=== PATIENT | male | born 1975 | race Caucasian/White ===

== ENCOUNTER 2017-01-10 15:32 | Inpatient (IN) | payer OTHER ==
[~2017-01-10] VITALS: Ht 188 cm; Wt 96.8 kg
--- NOTE | 2017-01-10 16:10 | DIAGNOSTIC IMAGING REPORT ---
PROCEDURE: XR CHEST 2 VIEW INDICATION: COUGH AND BODY ACHES TECHNIQUE: PA and lateral views. COMPARISON: None. FINDINGS: Left lower lobe infiltrate. Heart and mediastinum are normal. Thorax is normal. IMPRESSION: 1. Left lower lobe infiltrate
--- NOTE | 2017-01-10 18:07 | ED ORDER SUMMARY ---
..... Patient: ROSIBEL CORTES OrderSheet [facility] VisitID: [id number] [address] [place] [address] 41y, M Registration Date/Time: 01/10/2017 ORDER SHEET Weight: 93.4 kg (stated) Allergies: Sulfa Antibiotics GENERAL ORDERS: Chest 2V Urgent (15:44 01/10/2017 Etienne Marshall) (Ack 15:45 IJurca ER Tech1) (16:21 DDean R.N.) Blood Culture (Yes) (azithromycin) Urgent (20:26 01/10/2017 Etienne Marshall) (Ack 20:31 Tatiana ER Top Screw) (21:31 DDean R.N.) CMP Urgent (20:26 01/10/2017 Etienne Marshall) (Ack 20:31 Tatiana ER Top Screw) (20:56 DDean R.N.) CBC w Diff Urgent (20:26 01/10/2017 Etienne Marshall) (Ack 20:31 Tatiana ER Top Screw) (20:56 DDean R.N.) Lactate, Serum Urgent (20:26 01/10/2017 Etienne Marshall) (Ack 20:31 Tatiana ER Top Screw) (21:31 DDean R.N.) - (IV bag #3 1000cc at 500cc/hr) (23:00 01/10/2017 DDean R.N. per protocol) (23:01 DDean R.N.) MEDICATION ORDERS: Motrin PO 600 mg (NOW) (15:45 01/10/2017 Etienne Marshall) (Ack 15:47 DDean R.N.) (15:57 DDean R.N.) Tylenol PO 650 mg (NOW) (15:45 01/10/2017 Etienne Marshall) (Ack 15:48 DDean R.N.) (15:58 DDean R.N.) Azithromycin PO 500 mg (NOW) (16:28 01/10/2017 Etienne Marshall) (Ack 16:29 DDean R.N.) (16:33 DDean R.N.) IV FLUIDS: IV NS : initial bolus 1000 mL (1000 mL/hr), then none - for X1 (NOW) (16:23 01/10/2017 Etienne Marshall) (Cancelled: Patient Jhgrvwc21:28 DDean R.N.) IV NS with Normal Saline 1 Liter: initial bolus none -, then 1000 mL/hr for X1 (NOW); Nicolas (16:58 01/10/2017 LSullivan R.N. verbal order read back to Etienne Marshall) (16:59 LSullivan R.N.) Morphine IV 4 mg (NOW) (17:08 01/10/2017 LSullivan R.N. verbal order read back to Etienne Marshall) (17:08 LSullivan R.N.) IV NS : initial bolus 1000 mL (1000 mL/hr), then none - for X1 (NOW) (20:58 01/10/2017 Etienne Marshall) (Ack 21:01 DDean R.N.) (22:59 DDean R.N.) Ceftriaxone IV 2 gm/50mL (NOW) (22:10 01/10/2017 Etienne Marshall) (22:13 DDean R.N.) ORDER SHEET NOTES: [Electronically signed by Rudy Garibay Dr. (22:22 01/10/2017)] [Electronically signed by Elicia Rubin R.N. (23:02 01/10/2017)] [Electronically locked/signed by Elicia Rubin R.N. (23:02 01/10/2017)]
--- NOTE | 2017-01-10 18:07 | ED NURSING NOTES ---
Clinical Report - Nurses [facility] [address] [place] [address] 01/10/2017 15:33 Patient: ROSIBEL CORTES TRIAGE Triage time 1540. Acuity: LEVEL 3. Chief Complaint: (pt in with jessica concerned because he hadnt been out of trailer in 3 days. pt states he has been ill with general body aches and cough- difficulty walking). LACHELLE COMA SCORE: Lachelle Coma Scale: 15- eyes open spontaneously (4); best verbal response- oriented x 4 (5); best motor response- obeys commands (6). --15:46 Elicia Rubin R.N. 15:37 01/10/17. BP: 190/72. HR: 102. RR: 24. O2 saturation: 100%. Temp: 98.2 F. Pain level now: 5/10. Additional comments: generalized pain. --15:46 Elicia Rubin R.N. correction to prior entry -. --18:15 Elicia Rubin R.N. 15:37 01/10/17. BP: 109/72. --18:15 Elicia Rubin R.N. Weight: 93.4 kg stated. Height/Length: 74 inches Per Patient. BMI: 26.5. --15:45 Elicia Rubin R.N. Medications None. --15:42 Elicia Rubin R.N. Allergies Sulfa Antibiotics. --15:42 Elicia Rubin R.N. History Arrived by private vehicle. Historian: patient. Accompanied by (jessica). Primary physician (justin). The patient has had weakness and a cough. Reports muscle aches. SOCIAL HX: Heavy tobacco smoker (cigarette)- 1 pack per day. Alcohol use. (dry for a year). History of drug use: marijuana. --15:46 Elicia Rubin R.N. PROBLEMS: Herniated Disk. Lumbar Radiculopathy. Intervertebral Disc Disease. Back Injury. Sciatica. Head Injury. --15:45 Elicia Rubin R.N. ADDITIONAL SURGERIES: Knee Surgery. Neck Surgery. --15:45 Elicia Rubin R.N. Interventions ID band on patient. To treatment room. --15:46 Elicia Rubin R.N. PHYSICAL ASSESSMENT 15:40. To room via wheelchair. Patient gowned. GENERAL / NEURO / PSYCH: Alert. Oriented X 4. Appears in pain. HEENT: Mucous membranes are pink. RESPIRATORY: The patient can speak in full sentences. Cough. CVS: Capillary refill less than 2 seconds. GI / : Abdomen soft. SKIN: Skin is warm and dry. --15:47 Elicia Rubin R.N. NURSING PROGRESS NOTES 15:40. Patient gowned. Head of bed elevated. Reassurance given. Patient identifiers checked. Call light placed in reach. Side rails up. Bed placed in lowest position. Patient ready for evaluation- chart flagged. --15:47 Elicia Rubin R.N. 15:51 01/10/2017 Motrin PO 600 mg given. Allergies verified and confirmed 5 rights. --15:57 Elicia Rubin R.N. 15:51 01/10/2017 Tylenol (Acetaminophen) PO Tablets 650 mg given. Allergies verified and confirmed 5 rights. --15:58 Elicia Rubin R.N. 15:55. Patient transported to radiology by stretcher with tech. --15:59 Elicia Rubin R.N. 16:07 01/10/17. Patient returned from radiology by stretcher with tech. --16:07 Elicia Rubin R.N. 16:33 01/10/2017 Azithromycin PO Capsules 500 mg given. Allergies verified and confirmed 5 rights. --16:33 Elicia Rubin R.N. 16:55 01/10/2017 Site #1 started via IV in the right forearm with an 20g angiocath, with aseptic technique and good blood return; one attempt. Blood drawn: rainbow set. Labeled in the presence of the patient and sent to the lab. Saline lock flushed with 10 mL saline. --16:55 Ellen Bueno R.N. 16:59 01/10/2017 Started bag #1 1000 mL IV Fluids IV NS (Saline); at 1000 mL/hr via site #1. Confirmed 5 rights. --16:59 Ellne Bueno R.N. 17:08 01/10/2017 Morphine IVP 4 mg given over 2 minute(s) via site #1. Allergies verified, confirmed 5 rights and sedative warning given. --17:08 Ellen Bueno R.N. 16:40 01/10/17. BP: 107/70. HR: 96. RR: 18. O2 saturation: 97%. Temp: deferred. Pain level now: 01/02. --18:16 Elicia Rubin R.N. 17:50 01/10/2017 IV Fluids IV NS Bag Change: bag #1 infused. Total amount infused: 1000. STARTED bag #2 (1000 mL) at 1000 mL/hr via IV pump. IV patency established. IV site checked: no pain, redness, or swelling. IV flushed thoroughly. --18:17 Elicia Rubin R.N. 17:50 01/10/17. BP: 98/55. HR: 87. RR: 18. O2 saturation: 98%. Temp: deferred. Pain level now: 12/03. --18:19 Elicia Rubin R.N. 18:46 01/10/17. BP: 102/65. HR: 109. RR: 18. O2 saturation: 97% on room air. Temp: deferred. Pain level now: 01/02. --18:47 Elicia Rubin R.N. 18:47. ( waiting for ride to return so pt can be discharged). --18:48 Elicia Rubin R.N. 19:05 01/10/17. BP: 88/45. HR: 98. RR: 20. O2 saturation: 88%. Temp: deferred. Pain level now: 02/02. Additional comments: pt had episode of coughing stated "Im going to " sats decreased, plt placed on 2L NC . --19:16 Elicia Rubin R.N. 19:10 01/10/17. BP: 104/64. HR: 103. RR: 20. O2 saturation: 93% on nasal cannula at 2 liters/minute. Temp: deferred. Pain level now: 02/02. Additional comments: ERMD in to talk with pt and jessica. He states that we wants to admit pt to hospital, pt seems hesitant at first, but does agree. . --19:18 Elicia Rubin R.N. ( Pt sitting upright (vs laying down) texting on phone.). --19:32 Elicia Rubin R.N. 19:30 01/10/17. BP: 106/73. HR: 104. RR: 20. O2 saturation: 98% on nasal cannula at 3 liters/minute. Pain level now: 09/04. Additional comments: states it really only hurts when he coughs. --19:32 Elicia Rubin R.N. 19:15 01/10/2017 IV Fluids IV NS Bag Change: bag #2 infused. Total amount infused: 1000. STARTED bag #3 (1000 mL) at 500 mL/hr via IV pump. IV patency established. IV site checked: no pain, redness, or swelling. IV flushed thoroughly. --19:52 Elicia Rubin R.N. 20:20 01/10/17. BP: 105/65. HR: 106. RR: 20. O2 saturation: 100% on nasal cannula at 2 liters/minute. Temp: deferred. Pain level now: 09/04. Additional comments: asking again if he can eat. --20:39 Elicia Rubin R.N. 20:40. ( Pt given po food and fluids, oxygen decreased to 2L NC). --20:55 Elicia Rubin R.N. 21:06 01/10/17. ( Lab called with critical value WBC=25.8 ERMD notified). --21:06 Elicia Rubin R.N. 21:16 01/10/17. Patient ID band checked for patient name and birthdate. Blood samples drawn by lab ; labeled in presence of the patient and sent to lab: rainbow set: blood culture (1st set). --21:16 Elicia Rubin R.N. 21:40 01/10/17. BP: 112/54. HR: 98. RR: 22. O2 saturation: 96% on nasal cannula at 2 liters/minute. Temp: deferred. Pain level now: 09/04. --21:47 Elicia Rubin R.N. 22:13 01/10/2017 Started 2 gm of Ceftriaxone IVPB in bag #1 50 mL; at 150 mL/hr over 20 minute(s) via site #1 via IV pump. IV patency established. IV site checked: no pain, redness, or swelling. IV flushed thoroughly pre- and post-medication administration. --22:13 Elicia Rubin R.N. ( H+P FORM GIVEN). --22:28 Preston Prince, OFELIA Moderate Needs Teacher 17:40 01/10/2017 Started bag #2 1000 mL IV Fluids IV NS (Saline); at 1000 mL/hr over 1 hour(s) via site #1 via IV pump. --22:59 Elicia Rubin R.N. 19:15 01/10/2017 IV Fluids IV NS Discontinued: bag #2 infused. Total amount infused: 1000 mL. IV patency established. IV site checked: no pain, redness, or swelling. IV flushed thoroughly. --23:00 Elicia Rubin R.N. 22:40 01/10/2017 Ceftriaxone IVPB Discontinued: bag #1 infused. Total amount infused: 50 mL. IV patency established. IV site checked: no pain, redness, or swelling. IV flushed thoroughly. --22:58 Elicia Rubin R.N. 22:50 01/10/2017 Site #[address] upon admission; patent; flushes easily. --22:56 Elicia Rubin R.N. 22:50 01/10/2017 IV Fluids IV NS Continued: upon admission at the rate of 500 mL/hr. 300 mL remaining bag #3. IV patency established. IV site checked: no pain, redness, or swelling. IV flushed thoroughly. --23:02 Elicia Rubin R.N. DISPOSITION / DISCHARGE 22:04 01/10/17. Report was given. (alison VELASQUEZ, 2ND FLOOR). --22:04 Elicia Rubin R.N. 22:44 01/10/17. Condition at departure: improved and stable. Admitted to Acute Care. Transported via stretcher by nurse with IV and O2. --22:44 Elicia Rubin R.N. 22:42 01/10/17. BP: 104/64. HR: 102. RR: 22. O2 saturation: 95% on nasal cannula at 2 liters/minute. Temp: 97.9 F. Pain level now: 09/04. --22:44 Elicia Rubin R.N. LACHELLE COMA SCORE: [place] Coma Scale: 15- eyes open spontaneously (4); best verbal response- oriented x 4 (5); best motor response- obeys commands (6). --22:44 Elicia Rubin R.N. Locked/Released at 01/10/2017 23:02 by Elicia Rubin R.N.
--- NOTE | 2017-01-10 18:07 | ED ORDER SUMMARY ---
..... Patient: ROSIBEL CORTES OrderSheet [facility] VisitID: [id number] [address] [place] [address] 41y, M Registration Date/Time: 01/10/2017 ORDER SHEET Weight: 93.4 kg (stated) Allergies: Sulfa Antibiotics GENERAL ORDERS: Chest 2V Urgent (15:44 01/10/2017 Etienne Marshall) (Ack 15:45 IJurca ER Tech1) (16:21 DDean R.N.) Blood Culture (Yes) (azithromycin) Urgent (20:26 01/10/2017 Etienne Marshall) (Ack 20:31 Tatiana ER Painter Airbrush) (21:31 DDean R.N.) CMP Urgent (20:26 01/10/2017 Etienne Marshall) (Ack 20:31 Tatiana ER Painter Airbrush) (20:56 DDean R.N.) CBC w Diff Urgent (20:26 01/10/2017 Etienne Marshall) (Ack 20:31 Tatiana ER Painter Airbrush) (20:56 DDean R.N.) Lactate, Serum Urgent (20:26 01/10/2017 Etienne Marshall) (Ack 20:31 Tatiana ER Painter Airbrush) (21:31 DDean R.N.) - (IV bag #3 1000cc at 500cc/hr) (23:00 01/10/2017 DDean R.N. per protocol) (23:01 DDean R.N.) MEDICATION ORDERS: Motrin PO 600 mg (NOW) (15:45 01/10/2017 Etienne Marshall) (Ack 15:47 DDean R.N.) (15:57 DDean R.N.) Tylenol PO 650 mg (NOW) (15:45 01/10/2017 Etienne Marshall) (Ack 15:48 DDean R.N.) (15:58 DDean R.N.) Azithromycin PO 500 mg (NOW) (16:28 01/10/2017 Etienne Marshall) (Ack 16:29 DDean R.N.) (16:33 DDean R.N.) IV FLUIDS: IV NS : initial bolus 1000 mL (1000 mL/hr), then none - for X1 (NOW) (16:23 01/10/2017 Etienne Marshall) (Cancelled: Patient [id number] DDean R.N.) IV NS with Normal Saline 1 Liter: initial bolus none -, then 1000 mL/hr for X1 (NOW); Nicolas (16:58 01/10/2017 LSullivan R.N. verbal order read back to Etienne Marshall) (16:59 LSullivan R.N.) Morphine IV 4 mg (NOW) (17:08 01/10/2017 LSullivan R.N. verbal order read back to Etienne Marshall) (17:08 LSullivan R.N.) IV NS : initial bolus 1000 mL (1000 mL/hr), then none - for X1 (NOW) (20:58 01/10/2017 Etienne Marshall) (Ack 21:01 DDean R.N.) (22:59 DDean R.N.) Ceftriaxone IV 2 gm/50mL (NOW) (22:10 01/10/2017 Etienne Marshall) (22:13 DDean R.N.) ORDER SHEET NOTES: [Electronically signed by Rudy Garibay Dr. (22:22 01/10/2017)] [Electronically signed by Elicia Rubin R.N. (23:02 01/10/2017)] [Electronically locked/signed by Elicia Rubin R.N. (23:02 01/10/2017)]
--- NOTE | 2017-01-10 18:07 | ED CLINICAL REPORT ---
Clinical Report - Physicians/Mid Levels [facility] [address] [place] [address] 01/10/2017 15:33 Patient: ROSIBEL CORTES Time Seen: 1535. Arrived- By private vehicle. Historian- patient. HISTORY OF PRESENT ILLNESS Chief Complaint: FEVER. This started past 3 days and is still present and worsening. It is not gone now. Fever was abrupt in onset and has been persistent. Temperature not treated prior to arrival. The patient has had fatigue and a cough. No skin rash. Additional history - No known contact with a sick individual. Has not recently been ill. He is not immunocompromised. No recent hospitalization. No new medication recently administered. No history of HIV illness. No recent travel. reports no chest pain or shortness of breath. Similar symptoms previously: None. Recent medical care: Not recently seen/assessed. REVIEW OF SYSTEMS No headache or neck pain. All systems otherwise negative, except as recorded above. PAST HISTORY See nurses notes. Medications: None. Allergies: Sulfa Antibiotics. SOCIAL HISTORY Never smoker. Not exposed to second-hand smoke at home. No alcohol use or drug use. ADDITIONAL NOTES The nursing notes have been reviewed. PHYSICAL EXAM Vital Signs: 01/10/2017 15:37 BP: 190/72. HR: 102. RR: 24. O2 saturation: 100%. Temp: 98.2 F. Pain level now: 5/10. Oxygen saturation normal. Appearance: Alert. (mild distress. non-toxic.). Eyes: Pupils equal, round and reactive to light. Eyes normal inspection. ENT: Ears normal. Nose normal. Pharynx normal. Uvula midline. Neck: Normal inspection. Neck supple. CVS: Normal heart rate and rhythm. Heart sounds normal. Pulses normal. Respiratory: No respiratory distress. Rhonchi present (faint to left lower lobe. rest of the lungs are clear.). No wheezes. Abdomen: Soft and nontender. Bowel sounds normal. Skin: Skin warm and dry. Normal skin color. No rash. Normal skin turgor. Extremities: Extremities exhibit normal ROM. Extremities nontender. LABS, X-RAYS, AND EKG Chest X-ray: (PROCEDURE: XR CHEST 2 VIEW INDICATION: COUGH AND BODY ACHES TECHNIQUE: PA and lateral views. COMPARISON: None. FINDINGS: Left lower lobe infiltrate. Heart and mediastinum are normal. Thorax is normal. IMPRESSION: 1. Left lower lobe infiltrate). Laboratory Tests: CBC w Diff: (ONEIL: 01/10/2017 20:20) ( MsgRcvd 01/10/2017 21:05) IP Test Result Flag Units (Reference) WHITE BLOOD COUNT 25.8 *H K/uL (4.5-11.5) CRITICAL RESULTS CALLEDCalled to RON GIBSON IN ED 01/10/172Were 2 patient identifiers used? YWas the result read back? YMANUAL DIFFERENTIAL TO FOLLOW. RED BLOOD COUNT 5.06 M/uL (4.50-5.90) HEMOGLOBIN 14.7 gm/dL (13.5-17.5) HEMATOCRIT 43.5 % (41.0-53.0) MEAN CELL VOLUME 86 fL (80-100) MEAN CORPUSCULAR HGB 29 pg (26-34) MEAN CORPUSCULAR HGB CONC 34 g/dL (31-37) RED CELL DISTRIBUTION WIDTH 13.7 % (11.6-14.8) PLATELET COUNT 238 K/uL (150-400) Lactate, Serum: (ONEIL: 01/10/2017 21:15) ( MsgRcvd 01/10/2017 21:48) Final results Test Result Flag Units (Reference) LACTIC ACID 1.4 mmol/L (0.4-2.0) . Pulse Oximetry: 01/10/2017 21:40 O2 saturation: 96%. 01/10/2017 19:05 O2 saturation: 88%. Interpretation: hypoxemia. PROGRESS AND PROCEDURES Course of Care: the patient is pleasant 41 yo male presenting for evaluation of cough and symptoms that appeared to be viral in etiology. patient was uncomfortable. tylenol and ibuprofen ordered. chest xray also ordered for possible pneumonia. patient declined offers of admit when spoken to him about labs and work up as well as IV. work up shows pneumonia. patient given abx. reported generalized body aches. pain medications given and patient became tachy in the low hundreds. still declined IV and wanted to hydrate orally. Was successful however when patient about to be discharged had an episode of hypotension and hypoxia. patient stated he did not feel well. discussed the option of admission again. patient was hesitant but eventually agreeable to the admit. cultures, lactic, and labs drawn. patient already on abx however disposition changed at the last minute. discussed with patient work up, diagnosis, and plan of care. all questions answered. Patient agreeable to the treatment and plan. discussed case with hospitalist who is agreeable to the admit. Critical care performed (65 minutes). Time is exclusive of separately billable procedures. Time includes: direct patient care, patient reassessment, coordination of patient care, interpretation of data (laboratory data, pulse oximetry and chest xrays), review of patient's medical records, medical consultation and documentation of patient care. Disposition: Admitted to Acute Care. CLINICAL IMPRESSION 01/10/2017 15:37 BP: 190/72. HR: 102. RR: 24. O2 saturation: 100%. Temp: 98.2 F. Pain level now: 5/10. Hypertensive. Oxygen saturation normal. Bacterial pneumonia. Vital signs recorded and reviewed; empiric antibiotics given in the ED and prescribed. (acute left lower lobe). Mild dehydration acute sepsis left lower lobe pneumonia, acute hypoxia. INSTRUCTIONS Warnings: GENERAL WARNINGS: Return or contact your physician immediately if your condition worsens or changes unexpectedly, if not improving as expected, or if other problems arise. Specifically return if pain, vomiting, bleeding, breathing difficulty or fever. Your Current Medications: CONTINUE TAKING THE FOLLOWING MEDICATIONS: None*. Prescription Medications: Zithromax Z-Moe: Take according to package instructions. No refills. Substitution is permissible. [place] 5 mg / 325 mg tablets: take 1 orally every 6 hours as needed for pain. Dispense twelve (12). No refill. Substitution is permissible. Follow-up: Return to the emergency department as needed. Follow up with your doctor in three days. Reason for referral: recheck today's concerns. Summary of care provided to patient via paper. Screening today revealed the patient's blood pressure to be in the normal range. The patient should follow up with a primary care provider for blood pressure management. Understanding of the discharge instructions verbalized by patient. (Electronically signed by Rudy Garibay Dr. 01/10/2017 22:22)
--- NOTE | 2017-01-10 23:03 | ED MED RECONCILIATION SUMMARY ---
Patient: ROSIBEL CORTES Medication Reconciliation Report [facility] VisitID: [id number] [address] [place] [address] 41y, M Registration Date/Time: 01/10/2017 Weight: 93.4 kg Height/Length: 74 in. BMI: 26.5 ALLERGIES: Sulfa Antibiotics The patient's Home Medications are listed below: NONE. The source(s) of the original Home Medication information: Not obtained. The following Medications were given to the patient in the Emergency Department: Motrin [PO] PO 600 mg, administered: 01/10/2017 3:51:00 PM Tylenol [PO] PO 650 mg, administered: 01/10/2017 3:51:00 PM Azithromycin [PO] PO 500 mg, administered: 01/10/2017 4:33:00 PM IV NS IV Fluids bolus 0, then 1000 mL/hr, administered: 01/10/2017 4:59:00 PM Morphine [IVP] IVP 4 mg, administered: 01/10/2017 5:08:00 PM Ceftriaxone [IVPB] IVPB bolus 0, then 2 gm 150 mL/hr, administered: 01/10/2017 10:13:00 PM IV NS IV Fluids bolus 0, then 1000 mL/hr, administered: 01/10/2017 5:40:00 PM The following Medications were prescribed to the patient: Zithromax Z-Moe: Take according to package instructions. No refills. Substitution is permissible. -- Rudy Garibay Dr. [place] 5 mg / 325 mg tablets: take 1 orally every 6 hours as needed for pain. Dispense twelve (12). No refill. Substitution is permissible. -- Rudy Garibay Dr.
--- NOTE | 2017-01-10 23:03 | ED MAR SUMMARY ---
..... Medication Administration Record [facility] [address] [place] [address] Patient: ROSIBEL CORTES Visit ID: [id number] 41y, M Weight: 93.4 kg Height/Length: 74 in BMI: 26.5 ALLERGIES: Sulfa Antibiotics Given 15:51 01/10/2017 Elicia Rubin R.N. Medication Administered: MOTRIN [PO], Dose: 600 mg PO. Medication Ordered: Motrin PO 600 mg (NOW). Given 15:51 01/10/2017 Elicia Rubin R.N. Medication Administered: TYLENOL [PO] (ACETAMINOPHEN), Dose: 650 mg Tablets PO. Medication Ordered: Tylenol PO 650 mg (NOW). Given 16:33 01/10/2017 Elicia Rubin R.N. Medication Administered: AZITHROMYCIN [PO], Dose: 500 mg Capsules PO. Medication Ordered: Azithromycin PO 500 mg (NOW). Start 16:59 01/10/2017 Ellen Bueno R.N., Continued Upon Admission 22:50 01/10/2017 Elicia Rubin R.N. Medication Administered: IV NS (SALINE), Dose: IV Fluids, Rate: 1000 mL/hr, Dispensed: 1000 mL bag, Site: #1 right forearm. Medication Ordered: IV NS with Normal Saline 1 Liter: initial bolus none -, then 1000 mL/hr for X1 (NOW); Nicolas. Given 17:08 01/10/2017 Ellen Bueno R.N. Medication Administered: MORPHINE [IVP], Dose: 4 mg IVP over 2 minute(s), Site: #1 right forearm. Medication Ordered: Morphine IV 4 mg (NOW). Start 17:40 01/10/2017 Elicia Rubin R.N., Stop 19:15 01/10/2017 Elicia Rubin R.N. Medication Administered: IV NS (SALINE), Dose: IV Fluids over 1 hour(s), Rate: 1000 mL/hr, Dispensed: 1000 mL bag, Site: #1 right forearm. Medication Ordered: IV NS : initial bolus 1000 mL (1000 mL/hr), then none - for X1 (NOW). Start 22:13 01/10/2017 ScottieElicia R.N., Stop 22:40 01/10/2017 ScottieElicia R.N. Medication Administered: CEFTRIAXONE [IVPB], Dose: 2 gm IVPB over 20 minute(s), Rate: 150 mL/hr, Dispensed: 50 mL bag, Site: #1 right forearm. Medication Ordered: Ceftriaxone IV 2 gm/50mL (NOW).
--- NOTE | 2017-01-10 23:03 | ED DISCHARGE INSTRUCTIONS ---
Patient: ROSIBEL CORTES General Instructions [facility] VisitID: [id number] [address] [place] [address] 41y, M Registration Date/Time: 01/10/2017 01/10/2017 15:37 BP: 190/72. HR: 102. RR: 24. O2 saturation: 100%. Temp: 98.2 F. Pain level now: 5/10. Hypertensive. Oxygen saturation normal. Bacterial pneumonia. Vital signs recorded and reviewed; empiric antibiotics given in the ED and prescribed. (acute left lower lobe). Mild dehydration acute sepsis left lower lobe pneumonia, acute hypoxia. INSTRUCTIONS Warnings: GENERAL WARNINGS: Return or contact your physician immediately if your condition worsens or changes unexpectedly, if not improving as expected, or if other problems arise. Specifically return if pain, vomiting, bleeding, breathing difficulty or fever. Your Current Medications: CONTINUE TAKING THE FOLLOWING MEDICATIONS: None*. Prescription Medications: Zithromax Z-Meo: Take according to package instructions. No refills. Substitution is permissible. [place]ickley 5 mg / 325 mg tablets: take 1 orally every 6 hours as needed for pain. Dispense twelve (12). No refill. Substitution is permissible. Follow-up: Return to the emergency department as needed. Follow up with your doctor in three days. Reason for referral: recheck today's concerns. Summary of care provided to patient via paper. Screening today revealed the patient's blood pressure to be in the normal range. The patient should follow up with a primary care provider for blood pressure management. Understanding of the discharge instructions verbalized by patient. ADDITIONAL INFORMATION Pneumonia (Adult) Pneumonia is an infection deep within the lung, in the small air sacs (alveoli). It may be due to a virus or bacteria and is usually treated with an antibiotic. Severe cases require treatment in the hospital. Milder cases can be treated at home. Symptoms usually start to improve during the first2 days of treatment. Home Care: Rest at home for the first 23 days or until you feel stronger. When resuming activity, dont let yourself become overly tired. Avoid exposure to cigarette smoke (yours or others). You may use acetaminophen (Tylenol) or ibuprofen (Motrin, Advil) to control fever or pain, unless another medicine was prescribed. [NOTE: If you have chronic liver or kidney disease or ever had a stomach ulcer or GI bleeding, talk with your doctor before using these medicines.] (Aspirin should never be used in anyone under 18 years of age who is ill with a fever. It may cause severe liver damage.) Your appetite may be poor so a light diet is fine. Keep well hydrated by drinking 68 glasses of fluids per day (water, sport drinks such as Gatorade, sodas without caffeine, juices, tea, soup, etc.). This will help loosen secretions in the lung, making it easier for you to cough up the phlegm (sputum). If you also have heart or kidney disease, check with your doctor before you drink extra amounts of fluids. Finish all antibiotic medicine prescribed, even if you are feeling better after a few days. Follow Up with your doctor in the next 23 days (or as advised) to be sure you are responding properly to the medicine. [NOTE: If you are age 65 or older, or if you have chronic lung disease (asthma, emphysema or COPD), we recommendthe pneumococcal vaccination and a yearlyinfluenzavaccination(flu-shot) every . Ask your doctor about this.] Get Prompt Medical Attention if any of the following occur: Not getting better within the first 48 hours of treatment Increasing shortness of breath or rapid breathing (over 25 breaths/minute) Coughing up blood or increasing chest pain with breathing Fever of 100.4F (38C) oral or higher, not better with fever medication Increasing weakness, dizziness or fainting Increasing thirst or dry mouth Sinus pain, headache or a stiff neck Chest pain not caused by coughing Dehydration (Adult) Dehydration occurs when your body loses too much fluid. This may be the result of vomiting a lot or from diarrhea,sweating a lot, or a high fever. It may also happen if you dont drink enough fluid when youre sick. Misuse of diuretics (water pills) can also be a cause. Symptoms include thirst and feeling dizzy, weak, fatigued, or very drowsy. The diet described below is usually enough to treat most cases. Sometimes you may needmedicine. Home Care Follow these guidelines for home care: Drink at least 12 8-ounce glasses of fluid every day to overcome the dehydration. Fluid may include water; orange juice; lemonade; apple, grape, and cranberry juice; clear fruit drinks; electrolyte replacement and sports drinks; and teas and coffee without caffeine. If you have been diagnosed with a kidney disease, ask your doctor how much and what types of fluids you should drink to prevent dehydration. If you have kidney disease, drinking too much fluid can cause it build up in the your body and be dangerous to your health. If you have fever, muscle aching, or headache from a viral syndrome, you may useacetaminophen or ibuprofen, unless another medicine was prescribed for this.If you have chronic liver or kidney disease or ever had a stomach ulcer or GI bleeding, talk with your doctor before using these medicines. Don't take aspirin if you are younger than 18 and are ill with a fever.Aspirin raises the chance forsevere liver injury. Follow-up care Follow up with your health care provider if you don't get better in the next 24 to 48 hours. When to seek medical care Get prompt medical attention if any of theseoccur: Continued vomiting (cant keep liquids down) Frequent diarrhea (more than 5 times a day); blood (red or black color) or mucus in diarrhea Blood in vomit or stool Swollen abdomen or increasing abdominal pain Weakness, dizziness, or fainting Unusually drowsy or confused Reduced urine output or extreme thirst Fever of 100.4 F (38 C) oral or higher that does not get better with fever medication Azithromycin Oral tablet What is this medicine? AZITHROMYCIN (az ith sabrina MYE sin) is a macrolide antibiotic. It is used to treat or prevent certain kinds of bacterial infections. It will not work for colds, flu, or other viral infections. How should I use this medicine? Take this medicine by mouth with a full glass of water. Follow the directions on the prescription label. The tablets can be taken with food or on an empty stomach. If the medicine upsets your stomach, take it with food. Take your medicine at regular intervals. Do not take your medicine more often than directed. Take all of your medicine as directed even if you think your are better. Do not skip doses or stop your medicine early. Talk to your window glass installer regarding the use of this medicine in children. Special care may be needed. What side effects may I notice from receiving this medicine? Side effects that you should report to your doctor or health personal care home administrator as soon as possible: allergic reactions like skin rash, itching or hives, swelling of the face, lips, or tongue confusion, nightmares or hallucinations dark urine difficulty breathing hearing loss irregular heartbeat or chest pain pain or difficulty passing urine redness, blistering, peeling or loosening of the skin, including inside the mouth white patches or sores in the mouth yellowing of the eyes or skin Side effects that usually do not require medical attention (report to your doctor or health personal care home administrator if they continue or are bothersome): diarrhea dizziness, drowsiness headache stomach upset or vomiting tooth discoloration vaginal irritation What may interact with this medicine? Do not take this medicine with any of the following medications: lincomycin This medicine may also interact with the following medications: amiodarone antacids cyclosporine digoxin magnesium nelfinavir phenytoin warfarin What if I miss a dose? If you miss a dose, take it as soon as you can. If it is almost time for your next dose, take only that dose. Do not take double or extra doses. Where should I keep my medicine? Keep out of the reach of children. Store at room temperature between 15 and 30 degrees C (59 and 86 degrees F). Throw away any unused medicine after the expiration date. What should I tell my health care provider before I take this medicine? They need to know if you have any of these conditions: kidney disease liver disease irregular heartbeat or heart disease an unusual or allergic reaction to azithromycin, erythromycin, other macrolide antibiotics, foods, dyes, or preservatives or trying to get breast-feeding What should I watch for while using this medicine? Tell your doctor or health personal care home administrator if your symptoms do not improve. Do not treat diarrhea with over the counter products. Contact your doctor if you have diarrhea that lasts more than 2 days or if it is severe and watery. This medicine can make you more sensitive to the sun. Keep out of the sun. If you cannot avoid being in the sun, wear protective clothing and use sunscreen. Do not use sun lamps or tanning beds/booths. Hydrocodone Bitartrate, Acetaminophen Oral tablet What is this medicine? ACETAMINOPHEN; HYDROCODONE (a set a CHRISS jim fen; stacy droe KOE done) is a pain reliever. It is used to treat mild to moderate pain. How should I use this medicine? Take this medicine by mouth. Swallow it with a full glass of water. Follow the directions on the prescription label. If the medicine upsets your stomach, take the medicine with food or milk. Do not take more than you are told to take. Talk to your window glass installer regarding the use of this medicine in children. This medicine is not approved for use in children. What side effects may I notice from receiving this medicine? Side effects that you should report to your doctor or health personal care home administrator as soon as possible: allergic reactions like skin rash, itching or hives, swelling of the face, lips, or tongue breathing problems confusion feeling faint or lightheaded, falls stomach pain yellowing of the eyes or skin Side effects that usually do not require medical attention (report to your doctor or health personal care home administrator if they continue or are bothersome): nausea, vomiting stomach upset What may interact with this medicine? alcohol antihistamines isoniazid medicines for depression, anxiety, or psychotic disturbances medicines for sleep muscle relaxants naltrexone narcotic medicines (opiates) for pain phenobarbital ritonavir tramadol What if I miss a dose? If you miss a dose, take it as soon as you can. If it is almost time for your next dose, take only that dose. Do not take double or extra doses. Where should I keep my medicine? Keep out of the reach of children. This medicine can be abused. Keep your medicine in a safe place to protect it from theft. Do not share this medicine with anyone. Selling or giving away this medicine is dangerous and against the law. Store at room temperature between 15 and 30 degrees C (59 and 86 degrees F). Protect from light. Keep container tightly closed. Throw away any unused medicine after the expiration date. Discard unused medicine and used packaging carefully. Pets and children can be harmed if they find used or lost packages. What should I tell my health care provider before I take this medicine? They need to know if you have any of these conditions: brain tumor Crohn's disease, inflammatory bowel disease, or ulcerative colitis drink more than 3 alcohol-containing drinks per day drug abuse or addiction head injury heart or circulation problems kidney disease or problems going to the bathroom liver disease lung disease, asthma, or breathing problems an unusual or allergic reaction to acetaminophen, hydrocodone, other opioid analgesics, other medicines, foods, dyes, or preservatives or trying to get breast-feeding What should I watch for while using this medicine? Tell your doctor or health personal care home administrator if your pain does not go away, if it gets worse, or if you have new or a different type of pain. You may develop tolerance to the medicine. Tolerance means that you will need a higher dose of the medicine for pain relief. Tolerance is normal and is expected if you take the medicine for a long time. Do not suddenly stop taking your medicine because you may develop a severe reaction. Your body becomes used to the medicine. This does NOT mean you are addicted. Addiction is a behavior related to getting and using a drug for a non-medical reason. If you have pain, you have a medical reason to take pain medicine. Your doctor will tell you how much medicine to take. If your doctor wants you to stop the medicine, the dose will be slowly lowered over time to avoid any side effects. You may get drowsy or dizzy when you first start taking the medicine or change doses. Do not drive, use machinery, or do anything that may be dangerous until you know how the medicine affects you. Stand or sit up slowly. There are different types of narcotic medicines (opiates) for pain. If you take more than one type at the same time, you may have more side effects. Give your health care provider a list of all medicines you use. Your doctor will tell you how much medicine to take. Do not take more medicine than directed. Call emergency for help if you have problems breathing. The medicine will cause constipation. Try to have a bowel movement at least every 2 to 3 days. If you do not have a bowel movement for 3 days, call your doctor or health personal care home administrator. Too much acetaminophen can be very dangerous. Do not take Tylenol (acetaminophen) or medicines that contain acetaminophen with this medicine. Many non-prescription medicines contain acetaminophen. Always read the labels carefully. You have been given the following additional information: Pneumonia (Adult) Dehydration (Adult) Azithromycin Oral tablet Hydrocodone Bitartrate, Acetaminophen Oral tablet (Electronically signed by Rudy Garibay Dr. 01/10/2017 22:22)
--- NOTE | 2017-01-10 23:03 | ED MED RECONCILIATION SUMMARY ---
Patient: ROSIBEL CORTES Medication Reconciliation Report [facility] VisitID: [id number] [address] [place] [address] 41y, M Registration Date/Time: 01/10/2017 Weight: 93.4 kg Height/Length: 74 in. BMI: 26.5 ALLERGIES: Sulfa Antibiotics The patient's Home Medications are listed below: NONE. The source(s) of the original Home Medication information: Not obtained. The following Medications were given to the patient in the Emergency Department: Motrin [PO] PO 600 mg, administered: 01/10/2017 3:51:00 PM Tylenol [PO] PO 650 mg, administered: 01/10/2017 3:51:00 PM Azithromycin [PO] PO 500 mg, administered: 01/10/2017 4:33:00 PM IV NS IV Fluids bolus 0, then 1000 mL/hr, administered: 01/10/2017 4:59:00 PM Morphine [IVP] IVP 4 mg, administered: 01/10/2017 5:08:00 PM Ceftriaxone [IVPB] IVPB bolus 0, then 2 gm 150 mL/hr, administered: 01/10/2017 10:13:00 PM IV NS IV Fluids bolus 0, then 1000 mL/hr, administered: 01/10/2017 5:40:00 PM The following Medications were prescribed to the patient: Zithromax Z-Moe: Take according to package instructions. No refills. Substitution is permissible. -- Rudy Garibay Dr. [place] 5 mg / 325 mg tablets: take 1 orally every 6 hours as needed for pain. Dispense twelve (12). No refill. Substitution is permissible. -- Rudy Garibay Dr.
--- NOTE | 2017-01-10 23:03 | ED MAR SUMMARY ---
..... Medication Administration Record [facility] [address] [place] [address] Patient: ROSIBEL CORTES Visit ID: [id number] 41y, M Weight: 93.4 kg Height/Length: 74 in BMI: 26.5 ALLERGIES: Sulfa Antibiotics Given 15:51 01/10/2017 Elicia Rubin R.N. Medication Administered: MOTRIN [PO], Dose: 600 mg PO. Medication Ordered: Motrin PO 600 mg (NOW). Given 15:51 01/10/2017 Elicia Rubin R.N. Medication Administered: TYLENOL [PO] (ACETAMINOPHEN), Dose: 650 mg Tablets PO. Medication Ordered: Tylenol PO 650 mg (NOW). Given 16:33 01/10/2017 Elicia Rubin R.N. Medication Administered: AZITHROMYCIN [PO], Dose: 500 mg Capsules PO. Medication Ordered: Azithromycin PO 500 mg (NOW). Start 16:59 01/10/2017 Ellen Bueno R.N., Continued Upon Admission 22:50 01/10/2017 Elicia Rubin R.N. Medication Administered: IV NS (SALINE), Dose: IV Fluids, Rate: 1000 mL/hr, Dispensed: 1000 mL bag, Site: #1 right forearm. Medication Ordered: IV NS with Normal Saline 1 Liter: initial bolus none -, then 1000 mL/hr for X1 (NOW); Nicolas. Given 17:08 01/10/2017 Ellen Bueno R.N. Medication Administered: MORPHINE [IVP], Dose: 4 mg IVP over 2 minute(s), Site: #1 right forearm. Medication Ordered: Morphine IV 4 mg (NOW). Start 17:40 01/10/2017 Elicia Rubin R.N., Stop 19:15 01/10/2017 Elicia Rubin R.N. Medication Administered: IV NS (SALINE), Dose: IV Fluids over 1 hour(s), Rate: 1000 mL/hr, Dispensed: 1000 mL bag, Site: #1 right forearm. Medication Ordered: IV NS : initial bolus 1000 mL (1000 mL/hr), then none - for X1 (NOW). Start 22:13 01/10/2017 ScottieElicia R.N., Stop 22:40 01/10/2017 ScottieElicia R.N. Medication Administered: CEFTRIAXONE [IVPB], Dose: 2 gm IVPB over 20 minute(s), Rate: 150 mL/hr, Dispensed: 50 mL bag, Site: #1 right forearm. Medication Ordered: Ceftriaxone IV 2 gm/50mL (NOW).
[2017-01-10 23:15] VITALS: BP 101/63
--- NOTE | 2017-01-10 23:31 | History & Physical Report ---
Admission Admit Date 01/10/17 Information Source Information Source: Self Reliability: Fair History Chief Complaint shortness of breath and cough History of Present Illness Patient is a 41 year old male with no significant past medical history that is presenting with a 5 day history of cough and shortness of breath. Patient who had been in his usual state of health claims that he has been getting progressively more sick with no inciting event. Patient claims that he initially had a slight cough which became worse over time. He began to develop drenching sweats predominately at night time and had subjective fevers at home. He did not attempt to take any medication for this and patients symptoms became progressively worse. Patient came to the hospital for evaluation thinking that he would get antibiotics and be able to go home, however patient upon arrival was having continual fevers and developed some degree of hypoxia. Given these findings the patient was admitted for evaluation and monitoring. Patient is otherwise stable. Patient History 1. Sepsis 2. Left lower lobe pneumonia Social History Patient currently does odd jobs. 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 Family History Family history was reviewed; no changes noted. Advance Directive None Medications and Allergies Medications Home Medications None Current Medications Sig/Lalit Start time Last Medication Dose Route Stop Time Status Admin Ceftriaxone Sodium/ 50 ML QHS 01/11 2100 AC Dextrose IV Azithromycin 500 MG 1600 01/11 1600 AC Sodium Chloride 250 ML IV Acetaminophen 650 MG Q6H PRN 01/10 2315 AC PO Sodium Chloride 1,000 ML ASDIRECTED 01/10 2315 AC 01/11 IV 0206 Allergies Coded Allergies: Sulfa Antibiotics (01/10/17) Allergies Sulfa Antibiotics. --15:42 Elicia Rubin RAna Luisa. Review of Systems Constitutional Fever, Chills, Sweats, Weakness, Malaise. Eyes Denies: Pain, Vision Change, Conjunctival Inflammation, Eyelid Inflammation, Redness, Other. ENT Denies: Ear Pain, Ear Discharge, Nose Pain, Nasal Discharge, Nasal Congestion, Mouth Pain, Mouth Swelling, Throat Pain, Throat Swelling, Other. Respiratory Cough, SOB w/exertion, Pleuritic Pain. Denies: Dry, Wheezing, Hemoptysis, Sputum, Other. Cardiovascular Denies: Chest Pain, Palpitations, Orthopnea, PND, Edema, Light-headedness, Other. Gastrointestinal Denies: Nausea, Vomiting, Abdominal Pain, Diarrhea, Constipation, Melena, Hematochezia, Other. Genitourinary Denies: Dysuria, Frequency, Incontinence, Hematuria, Retention, Other. Musculoskeletal Denies: Neck Pain, Shoulder Pain, Arm Pain, Back Pain, Hand Pain, Leg Pain, Foot Pain, Other. Skin Denies: Rash, Lesions, Jaundice, Bruising, Other. Neurological Denies: Weakness, Numbness, Incoordination, Change in speech, Confusion, Seizures, Other. Physical Exam Vital Signs / I&Os Vital Signs Date Time Temp Pulse Resp B/P Pulse O2 O2 Flow FiO2 Ox Delivery Rate 01/11 0431 98.2 81 18 94/61 97 Nasal 2.0 Cannula 01/11 0332 Nasal 2.0 Cannula 01/11 0236 98.2 97 17 95/56 92 Nasal 2.0 Cannula 01/11 0001 Nasal 2.0 Cannula 01/10 2315 97.9 91 19 101/63 95 Nasal 2.0 Cannula I&O 01/10 0800 01/10 1600 01/11 0000 Intake Total Output Total Balance General Appearance Alert, Oriented X3, No acute distress HEENT Atraumatic, PERRLA, Moist mucous membranes Lungs Clear to auscultation, Normal air movement Cardiovascular Regular rate and rhythm, Normal S1 and S2, No murmurs, gallops, rubs Abdomen Soft, No tenderness, No guarding Extremities No edema, Normal pulses, No tenderness Skin No Breakdown Neurological Normal speech, Normal tone, Cranial nerves intact, Strength 5/5 x4 ext's, No lateralizing signs Psych/Mental Status Mood normal LAB Results Laboratory Tests 01/10 Chemistry Plasma Sodium (136 - 145 mmol/L) 137 Plasma Potassium (3.5 - 5.1 mmol/L) 3.3 Plasma Chloride (98 - 107 mmol/L) 99 CO2 (Enzymatic) (21 - 32 mmol/L) 25 BUN (7 - 18 mg/dL) 15 Creatinine (0.6 - 1.3 mg/dL) 1.1 Est GFR ( Amer) (mL/min) >60 Est GFR (Non-Af Amer) (mL/min) >60 Glucose (70 - 110 mg/dL) 129 Lactic Acid (0.4 - 2.0 mmol/L) 1.4 Plasma Calcium (8.5 - 10.1 mg/dL) 8.6 Total Bilirubin (0.0 - 1.0 mg/dL) 0.6 AST (15 - 37 U/L) 15 ALT (12 - 78 U/L) 18 Alkaline Phosphatase (46 - 116 U/L) 77 Total Protein (6.4 - 8.2 g/dL) 7.3 Albumin (3.3 - 5.0 g/dL) 2.8 Hematology WBC (4.5 - 11.5 K/uL) 25.8 RBC (4.50 - 5.90 M/uL) 5.06 Hgb (13.5 - 17.5 gm/dL) 14.7 Hct (41.0 - 53.0 %) 43.5 MCV (80 - 100 fL) 86 MCH (26 - 34 pg) 29 RDW (11.6 - 14.8 %) 13.7 Neut % (Auto) (50 - 75 %) 63 Lymph % (Auto) (25 - 40 %) 13 [place] % (Auto) (3 - 14 %) 1 Eos % (Auto) (0 - 4 %) 0 Baso % (Auto) (0 - 2 %) 0 Band Neutrophils % (0 - 8 %) 19 Metamyelocytes % (0 - 1 %) 4 Myelocytes (0 - 1 %) 0 Other Cell Type 0 Plt Count, EDTA (150 - 400 K/uL) 238 RBC Morphology NORMAL PUBS MCHC (31 - 37 g/dL) 34 Microbiology Date/Time Procedure - Status Source Growth 01/10 2115 Blood Culture - RECD BLOOD Assessment and Plan Problem List 1. Sepsis Plan - evidence of sepsis on admission - antibiotics and iv fluids are goal directed and started at appropriate times - will follow up results of blood culture - will initiate dual antibiotics and continue with aggressive fluid resuscitation 2. Left lower lobe pneumonia Plan - evidence of left lung pneumonia - will initiate antibioitics with ceftriaxone and azithromycin - 2 l nasal cannula to acheive O2 sat > 90% - daily labs - encourage expectoration
[2017-01-11 02:36] VITALS: BP 95/56
[2017-01-11 04:31] VITALS: BP 94/61
[2017-01-11 06:09] VITALS: BP 104/70
--- NOTE | 2017-01-11 10:07 | Progress Note ---
Subjective General Patient is a 41 year old male with no significant past medical history that is presenting with a 5 day history of cough and shortness of breath. Patient who had been in his usual state of health claims that he has been getting progressively more sick with no inciting event. Patient claims that he initially had a slight cough which became worse over time. He began to develop drenching sweats predominately at night time and had subjective fevers at home. He did not attempt to take any medication for this and patients symptoms became progressively worse. Patient came to the hospital for evaluation thinking that he would get antibiotics and be able to go home, however patient upon arrival was having continual fevers and developed some degree of hypoxia. Given these findings the patient was admitted for evaluation and monitoring. Patient is otherwise stable Feeling much better, Dyspnea improved and still there and has some cough with sputum, no fever or chills, upset that if he did not get discharged today he will lose everything he has in rental property Review of system: Respiratory system: Positive for dyslipidemia cough sputum Constitutional: Negative for fever or chills Physical Exam Vital Signs / I&Os Vital Signs Date Time Temp Pulse Resp B/P Pulse O2 O2 Flow FiO2 Ox Delivery Rate 01/11 0956 96 01/11 0609 98.2 76 18 104/70 97 2.0 01/11 0431 98.2 81 18 94/61 97 Nasal 2.0 Cannula 01/11 0332 Nasal 2.0 Cannula 01/11 0236 98.2 97 17 95/56 92 Nasal 2.0 Cannula 01/11 0001 Nasal 2.0 Cannula 01/10 2315 97.9 91 19 101/63 95 Nasal 2.0 Cannula I&O 01/11 0000 01/10 1600 01/10 0800 Intake Total Output Total Balance General Appearance Mild distress Lungs Clear to auscultation Neck Supple Cardiovascular Regular rate and rhythm, Normal S1 and S2, No murmurs, gallops, rubs Abdomen Normal bowel sounds, Soft, No tenderness Extremities No edema Skin No Rashes Psych/Mental Status Mental status normal LAB Results Laboratory Tests 01/11 Chemistry Plasma Sodium (136 - 145 mmol/L) 143 137 Plasma Potassium (3.5 - 5.1 mmol/L) 3.4 3.3 Plasma Chloride (98 - 107 mmol/L) 107 99 CO2 (Enzymatic) (21 - 32 mmol/L) 28 25 BUN (7 - 18 mg/dL) 13 15 Creatinine (0.6 - 1.3 mg/dL) 0.8 1.1 Est GFR ( Amer) (mL/min) >60 >60 Est GFR (Non-Af Amer) (mL/min) >60 >60 Glucose (70 - 110 mg/dL) 111 129 Lactic Acid (0.4 - 2.0 mmol/L) 1.4 Plasma Calcium (8.5 - 10.1 mg/dL) 7.7 8.6 Plasma Magnesium (1.8 - 2.4 mg/dL) 1.9 Total Bilirubin (0.0 - 1.0 mg/dL) 0.3 0.6 AST (15 - 37 U/L) 17 15 ALT (12 - 78 U/L) 19 18 Alkaline Phosphatase (46 - 116 U/L) 73 77 Total Protein (6.4 - 8.2 g/dL) 5.1 7.3 Albumin (3.3 - 5.0 g/dL) 2.1 2.8 Hematology WBC (4.5 - 11.5 K/uL) 15.6 25.8 RBC (4.50 - 5.90 M/uL) 4.25 5.06 Hgb (13.5 - 17.5 gm/dL) 12.2 14.7 Hct (41.0 - 53.0 %) 36.4 43.5 MCV (80 - 100 fL) 86 86 MCH (26 - 34 pg) 29 29 RDW (11.6 - 14.8 %) 13.6 13.7 Neut % (Auto) (50 - 75 %) 82.7 63 Lymph % (Auto) (25 - 40 %) 10.6 13 Sargent % (Auto) (3 - 14 %) 4.3 1 Eos % (Auto) (0 - 4 %) 2.1 0 Baso % (Auto) (0 - 2 %) 0.3 0 Band Neutrophils % (0 - 8 %) 19 Metamyelocytes % (0 - 1 %) 4 Myelocytes (0 - 1 %) 0 Other Cell Type 0 Plt Count, EDTA (150 - 400 K/uL) 199 238 RBC Morphology NORMAL PUBS MCHC (31 - 37 g/dL) 34 34 Microbiology Date/Time Procedure - Status Source Growth 01/10 2115 Blood Culture - RECD BLOOD Assessment and Plan Problem List 1. Sepsis Plan continue IV hydration, with I V antibiotics, afebrile now and wbc is decreasing 2. Left lower lobe pneumonia Plan continue abx, improving well
[2017-01-11 14:04] VITALS: BP 130/79
[2017-01-11 18:45] VITALS: BP 135/81
[2017-01-11 22:12] VITALS: BP 135/83
[2017-01-12 02:33] VITALS: BP 138/80
[2017-01-12 07:16] VITALS: BP 120/80
[2017-01-12 10:48] VITALS: BP 126/72
[2017-01-12] MEDS ORDERED: AZITHROMYCIN500 MG PO (12:25)
--- NOTE | 2017-01-12 13:18 | DISCHARGE SUMMARY ---
ADMIT DATE: 01/10/2017 DISCHARGE DATE: 01/12/2017 DISCHARGE DIAGNOSES: 1. Left lower lobe pneumonia. 2. Sepsis. BRIEF HISTORY: This is a 41-year-old white male who was admitted on 01/10/2017. The patient developed progressive symptoms of cough and sweats at night and fever. The patient finally saw his doctor and got an outpatient antibiotic, but that did not help. The patient gets short of breath with hypoxia, had to come to emergency and was found to have a left lower lobe pneumonia. HOSPITAL COURSE: The patient was admitted to acute care and was started on Rocephin and Zithromax and did very well on that and improved significantly. Today, the patient is doing much better. No fever, no chills, no cough, no chest pain, no shortness of breath, ambulating and taking his food well and ready to go home. No weakness, no sweats. PHYSICAL EXAMINATION: VITAL SIGNS: Blood pressure 126/72, temperature is 98.7, respirations 18, pulse is 96, oxygen is 99% on room air. LUNGS: Clear to auscultation except crackles on the left base. HEART: Regular S1 and S2. No murmur. No S3 was heard. ABDOMEN: Soft, nontender. Bowel sounds are positive. EXTREMITIES: No edema. LAB/IMAGING: Today white blood count down to 10.7, hemoglobin 12.8, hematocrit 37.5, and platelet count is 261. Sodium 142, potassium 3.7, chloride 108, CO2 25, BUN is 9 , creatinine 0.8, and calcium is 8.2. DISCHARGE INSTRUCTIONS/MEDICATIONS: Disposition: The patient will be discharged home to follow up with his primary care physician within 1 week. Outpatient medications will be Zithromax 500 mg p.o. for 3 more days.
== END 2017-01-12 13:08 | disposition home or self-care (01) | DRG 720 ==
LOC: ED SRH 15:32 → TRANS SRH 22:16 → ACUTE2 SRH 23:00
PROVIDERS: ADMIT Emergency Medicine
DX: A41.9 Sepsis, unspecified organism (principal); J18.9 Pneumonia, unspecified organism; R09.02 Hypoxemia; Z72.0 Tobacco use
CPT/HCPCS: 90047; 90065; 90074; 90100; 91643; 92031; 92720; 95059